=== PATIENT | female | born 1945 | race Caucasian/White ===

== ENCOUNTER 2018-08-05 06:30 | Day surgery (SDC) | payer MEDICARE, OTHER ==
[~2018-08-05] VITALS: Ht 154.9 cm; Wt 81.2 kg
[~2018-08-05 06:30] MED LIST: ALLEGRA ALLERG180 MG PO; ATORVASTATIN CA10 MG PO; CITRACAL + BON1 EACH PO; FOSAMAX70 MG PO; GARLIC1 EAC1 PO; GLUCOSAMINE &1 EAC1 PO; LEVOTHYROXINE25 MCG PO; SUPER B COMPLE1 EACH PO; VITAMIN E400 UNI6 PO
--- NOTE | 2018-08-05 07:58 | NUR ---
08/05/18 0758 Michelle Hickman 0751- PT ARRIVES TO PACU SLEEPING, AWAKENS WITH VERBAL STIMULI. BREATHING EASY, UNLABORED, ON 3 LNC. TURNED O2 OFF, TOLERATING ROOM AIR WELL. 0754- TOLERATING ROOM AIR WELL, RESPONDS TO VOICE, DENIES P/N/V.
--- NOTE | 2018-08-05 08:50 | OR ---
[facility] [address] [place], [place] [address] Signed DATE OF OPERATION: 08/05/2018 SURGEON: Woo Porter MD PREOPERATIVE DIAGNOSES: 1. Personal history of colonic polyps in 2013. 2. Diverticulosis. POSTOPERATIVE DIAGNOSIS: Minimal internal hemorrhoids. PROCEDURE PERFORMED: Colonoscopy without biopsy. ESTIMATED BLOOD LOSS: None. INDICATIONS: Gael is a 73-year-old female, who came to us in 2012 for her initial screening colonoscopy. She had a 3 mm sessile adenomatous polyp in the cecum. There seemed to be a little bit of diverticulosis. She returns now for followup colonoscopy. There are no lower GI complaints. No family history of colon cancer or polyps. I met with Gael in the office. I gave her a pamphlet on colonoscopy. We discussed the nature of the test along with the risks including, but not limited to gas, bloating, crampy abdominal pain, bleeding, perforation requiring surgery, and missed diagnosis. We also discussed the need for IV conscious sedation. She had expressed understanding and wished to proceed. DESCRIPTION OF PROCEDURE: Gael was taken into our endoscopy suite and placed in the left lateral decubitus position. She was given 6 mg of Versed and 100 mcg of fentanyl to cover the case. A digital rectal exam was performed and this was unremarkable. The adult colonoscope was introduced and advanced all around into the cecum under direct visualization of camera without difficulty. Her prep was good. We did use some extra sedation and abdominal compression in order to advance the scope. The scope was then slowly withdrawn. We took pictures throughout for photodocumentation. On this occasion, we did not see any obvious diverticular disease. No polyps. Upon retroflexion of scope, she has very minimal routine internal hemorrhoid tissue. After this, the gas was suctioned out. The colonoscope removed. Gael tolerated the procedure quite well. RECOMMENDATIONS: Electronically Signed By: WOO PORTER MD 08/05/18 0850 PATIENT NAME: GAEL GONZALEZ OPERATIVE REPORT DATE OF : 47 REPORT #: [id number] PHYSICIAN: WOO PORTER MD PCP: AD EGAN DO REPORT IS CONFIDENTIAL AND NOT TO BE RELEASED WITHOUT AUTHORIZATION [address] [address] Signed Gael is welcome to return in 5 years for repeat colonoscopy. Woo Porter MD ALB/MODL /[id number] cc: MD Ad Barreto DO Copies: WOO PORTER MD, ARIAN DO ~ Electronically Signed By: WOO PORTER MD 08/05/18 0850 PATIENT NAME: GAEL GONZALEZ OPERATIVE REPORT DATE OF : 47 REPORT #: [id number] PHYSICIAN: WOO PORTER MD PCP: AD EGAN DO REPORT IS CONFIDENTIAL AND NOT TO BE RELEASED WITHOUT AUTHORIZATION
== END 2018-08-05 08:35 | disposition home or self-care (01) ==
LOC: DS 06:30 → OPS 06:30 → DS 06:45 → OPS 06:45
PROVIDERS: Colon & Rectal Surgery
PROC: 0DJD8ZZ Inspection of Lower Intestinal Tract, Via Natural or Artificial Opening Endoscopic (ICD-10-PCS; principal; 2018-08-05 06:45)
DX: Z12.11 Encounter for screening for malignant neoplasm of colon (principal); K64.8 Other hemorrhoids; I10 Essential (primary) hypertension; E03.9 Hypothyroidism, unspecified; E66.9 Obesity, unspecified; Z86.010 Personal history of colon polyps; Z98.890 Other specified postprocedural states; Z88.8 Allergy status to other drugs, medicaments and biological substances; Z79.899 Other long term (current) drug therapy; Z68.33 Body mass index [BMI] 33.0-33.9, adult
CPT/HCPCS: 99153; G0500; J2250; J3010; J7120

== ENCOUNTER 2025-01-23 05:16 | Emergency (ER) | payer MEDICARE ==
[~2025-01-23] VITALS: Ht 154.9 cm; Wt 86.8 kg
[2025-01-23] MEDS ORDERED: ASPIRIN 81 MG CHEW PO ONE (05:30)
[2025-01-23] MEDS ORDERED: NITROGLYCERIN PACKET TOP ONE (05:30)
[2025-01-23] MEDS ORDERED: CANDICIDAL CAP1 EACH PO (05:32)
[2025-01-23 05:41] LABS: BASOPHILS 0.9 % (0.1-1.2); EOSINOPHILS 2.8 % (0.7-5.8); LYMPHOCYTES 47.6 % (19.3-51.7); MCH 33.6 PG (25.6-32.2); MCHC 34.5 g/dL (32.2-35.5); MCV 97.3 fL (79.4-94.8); MONOCYTES 11.7 % (4.7-12.5); NEUTROPHILS 36.8 % (34.0-71.1); RBC 4.41 M/uL (3.93-5.22)
[2025-01-23 06:01] LABS: INR 0.98 (0.80-1.30); PROTIME 12.3 Sec (11.2-14.2)
[2025-01-23 06:47] LABS: ALT (SGPT) 26.0 U/L (14-59); AST (SGOT) 22.0 U/L (15-37); GLOMERULAR FILTRATION RATE,EST 86.0 mL/min (>60); PROTEIN, TOTAL 6.9 g/dL (6.4-8.2); UREA NITROGEN 17.0 mg/dL (7-18)
[2025-01-23] MEDS ORDERED: CYCLOBENZAPRINE10 MG PO (07:00)
[2025-01-23] MEDS ORDERED: VENTOLIN HFA18 GM INH (07:00)
[2025-01-23] MEDS ORDERED: MORPHINE SULFATE 4 MG/ML VIAL IV ONE (07:00)
[2025-01-23] MEDS ORDERED: CEFDINIR300 MG PO (07:00)
[2025-01-23] MEDS ORDERED: AZITHROMYCIN250 MG PO (07:00)
[2025-01-23 08:30] VITALS: BP 138/63
--- NOTE | 2025-01-23 15:12 | EKG ---
[facility] [address] [facility] [place] [address] Signed Normal sinus rhythm Normal ECG No previous ECGs available Confirmed by Cindy Bland MD () on 01/23/2025 3:12:07 PM Electronically Signed By: CINDY BLAND MD 01/23/25 1512 PATIENT NAME: GAEL GONZALEZ Electrocardiogram DATE OF : 47 PHYSICIAN: CINDY BLAND MD REPORT #: [id number] REPORT IS CONFIDENTIAL AND NOT TO BE RELEASED WITHOUT AUTHORIZATION
== END 2025-01-23 08:04 | disposition home or self-care (01) ==
LOC: ED 05:16
PROVIDERS: Family Medicine
DX: J18.9 Pneumonia, unspecified organism (principal); M19.90 Unspecified osteoarthritis, unspecified site; E78.5 Hyperlipidemia, unspecified; Z90.710 Acquired absence of both cervix and uterus; Z88.8 Allergy status to other drugs, medicaments and biological substances
CPT/HCPCS: 36415; 71045; 80053; 83735; 84484; 85025; 85610; 93005; 93010; 96365; 96375; 99285-25; A9270; J0696; J2270